=== PATIENT | female | born 1990 | race Caucasian/White ===

== ENCOUNTER 2018-07-28 11:29 | Outpatient (CLI) | payer OTHER ==
[2018-07-28 16:13] LABS: RHOGAM PROFILE 1 1
== END 2018-07-28 16:31 | disposition home or self-care (01) ==
LOC: OBT 11:29 → L-D 11:29 → OBT 16:31
DX: O9A.213 Injury, poisoning and certain other consequences of external causes complicating pregnancy, third trimester (principal); S39.91XD Unspecified injury of abdomen, subsequent encounter; Z3A.31 31 weeks gestation of pregnancy; W18.11XD Fall from or off toilet without subsequent striking against object, subsequent encounter
CPT/HCPCS: 76815; 76817; 76818; 86850; 86885; 86900; 86901